=== PATIENT | female | born 2000 | race Hispanic/Latino ===

== ENCOUNTER 2024-09-20 19:36 | Emergency (ER) | payer OTHER ==
[2024-09-20] MEDS ORDERED: IBUPROFEN 400 MG TAB ONE (20:26)
[2024-09-20] MEDS ORDERED: ACETAMINOPHEN 500 MG TAB ONE (20:26)
--- NOTE | 2024-09-20 21:21 | EDPHYS ---
Physician Documentation [facility] Name: Cheri Mendoza Age: 24 yrs Sex: Female : 2000 Arrival Date: 09/20/2024 Time: 19:36 Bed 17 Private MD: ED Physician Yuri Pike HPI: 09/20 20:10 This 24 yrs old Female presents to ER via Ambulatory with complaints of Hand cp Injury. 20:10 The patient or guardian reports injury, pain, swelling, tenderness. The complaints cp affect the left hand diffusely. Context: resulted from a crush injury, by a car door. Onset: The symptoms/episode began/occurred just prior to arrival. Associated signs and symptoms: The patient has no apparent associated signs or symptoms. 20:10 Severity of symptoms: in the emergency department the symptoms are unchanged, despite cp home interventions. 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 - Infectious Disease History:: Denies. - Social history:: Smoking status: Patient denies any tobacco usage or history of. ROS: 20:15 Constitutional: history per hpi cp 20:15 MS/extremity: Positive for pain, swelling, tenderness, of the left hand, crush injury, Negative for decreased range of motion, deformity, 20:15 All other systems are negative, Exam: 20:20 Constitutional: The patient appears in no acute distress, alert, awake, well developed, cp well nourished, obese, uncomfortable, 20:20 Head/Face: Normocephalic, atraumatic. cp 20:20 Musculoskeletal/extremity: Extremities: noted in the left hand: pain, tenderness, mild swelling noted of dorsal side of hand and third and fourth fingers, ROM: limited active range of motion due to pain, in the left hand, Perfusion: the extremity is normally perfused throughout, the left hand Sensation intact. skin intact and no open wounds, nails intact without damage. Vital Signs: 19:53 BP 161 / 84; Pulse 100; Resp 19; Temp 99.1(O); Pulse Ox 99% on R/A; MAP 98 mmHg; Weight tm6 113.4 kg; Height 5 ft. 3 in. ; Pain 7/10; 21:00 BP 150 / 88; Pulse 80; Resp 18; Temp 98; Pulse Ox 98% on R/A; kj2 21:41 BP 140 / 84; Pulse 78; Resp 18; Temp 98.2; Pulse Ox 100% on R/A; kj2 19:53 Body Mass Index 44.29 (113.40 kg, 160.02 cm) tm6 19:53 Pain Scale: Adult tm6 MDM: 19:48 Medical Screening Exam initiated cp 20:30 Differential diagnosis: dislocation, open fracture, closed fracture, contusion, cp abrasion. 21:11 Data reviewed: vital signs, nurses notes, radiologic studies, plain films. I considered cp the following discharge prescriptions or medication management in the emergency department Medications were administered in the Emergency Department. See MAR. Independent interpretation of the following test(s) in the Emergency Department X-Ray: My interpretation is images of left hand negative for fracture. Counseling: I had a detailed discussion with the patient and/or guardian regarding the historical points, exam findings, and any diagnostic results supporting the discharge/admit diagnosis, radiology results. 09/20 20:03 Order name: XRAY Hand LEFT 3 View; Complete Time: 21:32 cp 09/20 21:32 Interpretation: Report reviewed. cp 09/20 20:03 Order name: Ice pack; Complete Time: 20:28 cp 09/20 21:11 Order name: Jerman Wrap; Complete Time: 22:02 cp Administered Medications: 20:30 Drug: Ibuprofen PO 800 mg PO once; may give if not Route: PO; kj2 22:08 Follow up: Response: No adverse reaction kj2 20:31 Drug: Acetaminophen PO 1000 mg PO once Route: PO; kj2 22:08 Follow up: Response: No adverse reaction kj2 Disposition: 09/21 01:21 Co-signature as Attending Physician, Yuri Pike MD I reviewed the patient's care rn provided by the Advanced Practice Provider and agree with the diagnosis and treatment plan. Disposition Summary: 09/20/24 21:20 Discharge Ordered Notes: Location: Home cp Problem: new cp Symptoms: have improved cp Condition: Stable cp Diagnosis - Crushing injury of hand - left cp Followup: cp - With: Private Physician - When: 2 - 3 days - Reason: Worsening of condition Discharge Instructions: - Discharge Summary Sheet cp - Crush Injury of the Hand cp Forms: - Medication Reconciliation Form cp - Antibiotic Education cp - Prescription Opioid Use cp - Patient Portal Instructions cp - Leadership Thank You Letter cp Prescriptions: - Anaprox DS 550 mg Oral Tablet - take 1 tablet ORAL route every 12 hours As needed; 20 tablet; Refills: 0, cp Product Selection Permitted Signatures: Dispatcher [employer] EDWI Yuri Pike MD MD rn Page, Corey, PA PA cp Monica Moya RN RN tm6 Marcie Marks RN RN kj2 Corrections: (The following items were deleted from the chart) 09/20 19:55 19:54 PSHx: None; tm6 tm6 20:03 20:03 Hand Left 3 View+RAD.RAD.BRZ ordered. [facility] 09/21 16:09 16:08 MS/extremity: Positive for pain, swelling, tenderness, of the left hand, crush cp injury, Negative for decreased range of motion, deformity, cp 16:09 16:08 Constitutional: history per hpi cp cp 16:09 16:08 All other systems are negative, cp cp
--- NOTE | 2024-09-20 21:21 | ER ---
Nurse's Notes [facility] Name: Cheri Mendoza Age: 24 yrs Sex: Female : 2000 Arrival Date: 09/20/2024 Time: 19:36 Bed 17 Private MD: Diagnosis: Crushing injury of hand-left Presentation: 09/20 19:53 Chief complaint: Patient states: I smushed my left hand in the card door about an hour tm6 ago. My fingers are swollen and are in pain. Coronavirus screen: Client denies travel out of the [place] in the last 14 days. Ebola Screen: Patient negative for fever greater than or equal to 101.5 degrees Fahrenheit, and additional compatible Ebola Virus Disease symptoms Patient denies exposure to infectious person. Patient denies travel to an Ebola-affected area in the 21 days before illness onset. No symptoms or risks identified at this time. Initial Sepsis Screen: Does the patient meet any 2 criteria? HR > 90 bpm. No. Patient's initial sepsis screen is negative. Does the patient have a suspected source of infection? No. Patient's initial sepsis screen is negative. Risk Assessment: Do you want to hurt yourself or someone else? Patient reports no desire to harm self or others. Onset of symptoms was September 20, 2024 at 19:00. 19:53 Method Of Arrival: Ambulatory tm6 19:53 Acuity: ISABELLA 4 tm6 Triage Assessment: 19:54 General: Appears in no apparent distress. uncomfortable, Behavior is calm, cooperative. tm6 Pain: Complains of pain in left hand Pain currently is 7 out of 10 on a pain scale. Pain began 1 hour ago. EENT: No signs and/or symptoms were reported regarding the EENT system. Neuro: Level of Consciousness is awake, alert, obeys commands, Oriented to person, place, time, situation. Cardiovascular: Patient's skin is warm and dry. Respiratory: Airway is patent Respiratory effort is even, unlabored, Respiratory pattern is regular, symmetrical. GI: No signs and/or symptoms were reported involving the gastrointestinal system. Abdomen is round. : No signs and/or symptoms were reported regarding the genitourinary system. Derm: No signs and/or symptoms reported regarding the dermatologic system. Musculoskeletal: Swelling present in left hand Reports pain in left hand Pain is 7 out of 10 on a pain scale. 21:00 Injury Description: HAND SWELLING. 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 - Infectious Disease History:: Denies. - Social history:: Smoking status: Patient denies any tobacco usage or history of. Screenin:00 [facility] [place] ED Fall Risk Assessment (Adult) History of falling in the last 3 months, kj2 including since admission No falls in past 3 months (0 pts) Confusion or Disorientation No (0 pts) Intoxicated or Sedated No (0 pts) Impaired Gait No (0 pts) Mobility Assist Device Used No (0 pt) Altered Elimination No (0 pt) Score/Fall Risk Level 0 - 2 = Low Risk Maintained a safe environment, Hourly rounding (assess needs \T\ fall precautionary measures) done. Abuse screen: Denies threats or abuse. Denies injuries from another. Nutritional screening: No deficits noted. Tuberculosis screening: No symptoms or risk factors identified. Assessment: 20:00 General: Appears in no apparent distress. uncomfortable, Behavior is calm, cooperative. kj2 Pain: Complains of pain in left hand Pain currently is 7 out of 10 on a pain scale. Neuro: Level of Consciousness is awake, alert, Oriented to person, place, time, situation. Cardiovascular: Patient's skin is warm and dry. Respiratory: Airway is patent Respiratory effort is even, unlabored. GI: No signs and/or symptoms were reported involving the gastrointestinal system. : No signs and/or symptoms were reported regarding the genitourinary system. 21:00 Reassessment: Patient appears in no apparent distress at this time. Patient and/or kj2 family updated on plan of care and expected duration. Pain level reassessed. Patient is alert, oriented x 3, equal unlabored respirations, skin warm/dry/pink. 21:41 Reassessment: Patient appears in no apparent distress at this time. Patient and/or kj2 family updated on plan of care and expected duration. Pain level reassessed. Patient is alert, oriented x 3, equal unlabored respirations, skin warm/dry/pink. Vital Signs: 19:53 BP 161 / 84; Pulse 100; Resp 19; Temp 99.1(O); Pulse Ox 99% on R/A; MAP 98 mmHg; Weight tm6 113.4 kg; Height 5 ft. 3 in. ; Pain 7/10; 21:00 BP 150 / 88; Pulse 80; Resp 18; Temp 98; Pulse Ox 98% on R/A; kj2 21:41 BP 140 / 84; Pulse 78; Resp 18; Temp 98.2; Pulse Ox 100% on R/A; kj2 19:53 Body Mass Index 44.29 (113.40 kg, 160.02 cm) tm6 19:53 Pain Scale: Adult tm6 ED Course: 19:43 Patient arrived in ED. im 19:48 Sidney Rhodes PA is PHCP. cp 19:48 Yuri Pike MD is Attending Physician. cp 19:54 Triage completed. tm6 19:54 Arm band placed on right wrist. tm6 20:00 Patient has correct armband on for positive identification. Bed in low position. Call kj2 light in reach. Adult w/ patient. Provided Education on: CALL LIGHT. 20:18 Marcie Marks, JOAQUIN is Primary Nurse. kj2 20:22 No provider procedures requiring assistance completed. kj2 21:18 XRAY Hand LEFT 3 View In Process Unspecified. EDMS 21:43 Patient did not have IV access during this emergency room visit. kj2 Administered Medications: 20:30 Drug: Ibuprofen PO 800 mg PO once; may give if not Route: PO; kj2 22:08 Follow up: Response: No adverse reaction kj2 20:31 Drug: Acetaminophen PO 1000 mg PO once Route: PO; kj2 22:08 Follow up: Response: No adverse reaction kj2 Medication: 20:21 VIS not applicable for this client. kj2 Outcome: 21:20 Discharge ordered by MD. cp 21:42 Discharged to home ambulatory, kj2 21:42 Condition: stable 21:42 Discharge instructions given to patient, Instructed on discharge instructions, follow up and referral plans. Demonstrated understanding of instructions, follow-up care, 22:07 Patient left the ED. kj2 Signatures: Dispatcher [employer] EDAK Sidney Rhodes PA PA cp Georgia Daniels Tawney, RN RN 6 Marcie Marks RN RN kj2 Corrections: (The following items were deleted from the chart) 19:55 19:54 PSHx: None; tm6 tm6
--- NOTE | 2024-09-20 21:25 | RAD REPORT ---
EXAM: XR LEFT HAND HISTORY: [facility] None TECHNIQUE: Multiple projections of the left hand submitted. FINDINGS: No evidence of acute fracture or dislocation. Joint alignment is maintained. No soft tissu e swelling is seen.. No significant degenerative changes are present.
[2024-09-20 22:14] VITALS: BP 140/84; TEMP 98.2; O2SAT 100
== END 2024-09-20 22:07 | disposition home or self-care (01) ==
LOC: ER 19:36
DX: S67.22XA Crushing injury of left hand, initial encounter (principal)
CPT/HCPCS: 99283